=== PATIENT | male | born 1975 | race Caucasian/White ===

== ENCOUNTER 2019-03-09 22:05 | Emergency (ER) | payer OTHER ==
[2019-03-09 22:32] VITALS: BP 120/72; PULSE 64; TEMP 97.7; BMI 29.9
--- NOTE | 2019-03-10 00:05 | PDOC ---
History of Present Illness - General Chief Complaint: Headache Stated Complaint: SENT BY PCP/HEADACHE Time Seen by Provider: 03/10/19 00:02 - History of Present Illness Initial Comments: James Timmons is a 43yo otherwise healthy man who presents with a severe, throbbing , left-sided headache with associated photophobia. He denies any neurological symptoms including changes in vision, change in hearing, focal numbness/weakness , change in speech, sleepiness, or AMS. he additionally denies any nausea or vomiting, though he has not had an appetite today. He took ibuprofen without any significant improvement yesterday but did not take any medication for the headache today. Mr Timmons went to urgent care today and was sent to the ED for additional management due to a family history of aneurysm and stroke. Mr Timmons states that his mother had an aneurysm and multiple strokes as well. Mr Timmons is not sure exactly when or how the headache started, but he thinks it may have been relatively abrupt. He denies any recent URI, fever/chills, cough or other recent symptoms. Past History - Past Medical History Allergies/Adverse Reactions: Allergies Allergy/AdvReac Type Severity Reaction Status Date / Time No Known Allergies Allergy Verified 03/09/19 22:32 COPD: No - Suicide/Smoking/Psychosocial Hx Smoking History: Never smoked Have you smoked in the past 12 months: No Information on smoking cessation initiated: No Hx Alcohol Use: No Drug/Substance Use Hx: No Review of Systems - Review of Systems Comments:: General: No fevers, no chills, no weight or appetite change, no malaise HEENT: No changes in vision, no changes in hearing, no congestion, no sore throat CV: No chest pain, no palpitations, no LE edema Pulm: No SOB, no cough, no wheezing GI: No nausea or vomiting, no change in bowel habits, no melena : No frequency, no urgency, no dysuria Musc: No back pain, no joint swelling, no recent injury Skin: No rash, no lesions, no erythema Endo: No excessive thirst, no heat/cold intolerance Heme: No unusual bruising or bleeding, no swollen glands Neuro: No syncope, no numbness/tingling, no focal weakness Vasc: No claudication Psych: No recent change in mood, no SI or HI *Physical Exam - Vital Signs Last Vital Signs Temp Pulse Resp BP Pulse Ox 97.7 F 64 18 120/72 100 03/09/19 22:30 03/09/19 22:30 03/09/19 22:30 03/09/19 22:30 03/09/19 22:30 - Physical Exam Comments: General: Comfortable, no acute distress HEENT: PERRL, EOMI, MMM, voice normal, normal neck ROM, no LAD Cards: RRR, no murmur appreciated Pulm: Comfortable on room air, clear to auscultation bilaterally Abd: Soft, nontender, nondistended Ext: Atraumatic. No LE edema. ROM intact. Strength 5/5 and equal bilaterally in upper and lower extremities. Vasc: Extremities WWP. Skin: Normal color, no rashes or lesions Neuro: A&Ox3, CN grossly intact, normal speech, motor/sensory grossly intact and symmetric. No ataxia on finger-nose, heel-cabral or rapid alternating movements. Normal gait. Psych: Mood appropriate to situation ED Treatment Course - LABORATORY CBC & Chemistry Diagram: 03/10/19 00:18 03/10/19 00:18 Medical Decision Making - Medical Decision Making 03/10/19 00:04 James Timmons is a 43yo otherwise healthy man who presents with a severe, throbbing , left-sided headache with associated photophobia. He denies any neurological symptoms including changes in vision, change in hearing, focal numbness/weakness , change in speech, sleepiness, or AMS. he additionally denies any nausea or vomiting, though he has not had an appetite today. He took ibuprofen without any significant improvement yesterday but did not take any medication for the headache today. Mr Timmons went to urgent care today and was sent to the ED for additional management due to a family history of aneurysm and stroke. Mr Timmons states that his mother had an aneurysm and multiple strokes as well. Mr Timmons is not sure exactly when or how the headache started, but he thinks it may have been relatively abrupt. He denies any recent URI, fever/chills, cough or other recent symptoms. - Most likely benign headache (tension, migraine) but need to evaluate for aneurysm or bleed given significant family history - CBC, CMP - CT head - IVF, acetaminophen, reglan for symptoms 03/10/19 00:42 - Labs sent - Feeling improved after medications 03/10/19 01:33 - CT reviewed. No abnormalities appreciated, but radiology report pending - Discussed with pt the possibility of a sentinel bleed, recommending an LP to evaluate for a small amout of blood. Discussed that bleeding that occurred over 24 hours ago may not be seen on the CT. Lengthy conversation regarding reasons to complete LP, risks, benefits, possible outcomes including larger bleed in the future that could result in serious adverse outcomes, permanent disability or . Mr Timmons states understanding but states he would prefer to be discharged home. - Dr Bhatia spoke to Mr Timmons. He continues to decline the LP 03/10/19 02:18 - Labs reviewed, no concerning abnormalities - Radiology report also without concerning findings - Mr Timmons will leave AMA. Now feels improved. Understands the risks of forgoing the LP, will return if he has any recurrent or continued symptoms. Will follow up with neuro. Discussed with Dr Bhatia. Sofía Lyles PGY1 *DC/Admit/Observation/Transfer Diagnosis at time of Disposition: Family history of brain aneurysm Headache Qualifiers: Headache type: unspecified Headache chronicity pattern: acute headache Intractability: not intractable Qualified Code(s): R51 - Headache - Discharge Dispostion Disposition: AGAINST MEDICAL ADVICE Condition at time of disposition: Stable Decision to Admit order: No - Referrals Referrals: Zbigniew Zapata MD [Staff Physician] - Aakash Haskins MD [Staff Physician] - - Patient Instructions Printed Discharge Instructions: DI for Headache Additional Instructions: Mr. Timmons Thank you for coming in to the ER today We have performed a CT for you which was read as negative for acute abnormalities The CT scan will be re read in the morning by our Radiologist We will call you if there are any new findings on your CT scan If you have another headache that is severe, please return to the ER immediately - You may use over the counter medications as needed for pain at home. 650- 1000mg acetaminophen (Tylenol) or 600mg ibuprofen (Motrin or Advil) can be used every 6-8 hours. If needed for continued pain, these medications may be alternated every 3-4 hours. For example, if you take ibuprofen at 9am, you may take acetaminophen at noon, ibuprofen at 3pm, etc. - It is strongly recommended that you take ibuprofen with food to help prevent stomach irritation. If you are taking it for more than a day or two, you may consider taking an acid medication such as Pepcid or Xantac, available over the counter, to protect your stomach. This should be taken first thing in the morning 30-60 minutes before any food or medications. You must follow up with a primary care physician AND a neurologist (brain specialist) for further evaluation of your headaches (given your family history) Please feel free to return to the ER for any other concerns or complaints - Post Discharge Activity
[2019-03-10] MEDS ORDERED: METOCLOPRAMIDE HCL INJECTION 10 MG/2 ML VIAL IVPUSH ONE (00:15)
[2019-03-10] MEDS ORDERED: ACETAMINOPHEN 1000 MG/100 ML VIAL (NON FORMULARY) IVPB ONE (00:15)
[2019-03-10] MEDS ORDERED: ACETAMINOPHEN INJECTION 100 ML IVPB ONE (00:24)
[2019-03-10] MEDS ORDERED: METOCLOPRAMIDE HCL INJECTION 10 MG/2 ML VIAL ONE (00:24)
[2019-03-10 01:09] LABS: BASO % 0.3 % (0-2.0); EOS % 1.5 % (0-4.5); HEMATOCRIT 43.9 % (35.4-49); LYMPH % 38.3 % (8-40); MCH 29.7 pg (25.7-33.7); MCHC 34.2 g/dl (32.0-35.9); MEAN PLT VOLUME 7.2 fl (7.5-11.1); MONO % 7.3 % (3.8-10.2); NEUT % 52.6 % (42.8-82.8); PLATELET COUNT 229 K/MM3 (134-434); RBC 5.04 M/mm3 (4.00-5.60); RDW 13.1 % (11.9-15.9); WHITE BLOOD COUNT 5.5 K/mm3 (4.0-10.0)
[2019-03-10 01:51] LABS: ALBUMIN 3.6 g/dl (3.4-5.0); BILIRUBIN,TOTAL 0.2 mg/dL (0.2-1); CALCIUM 8.8 mg/dL (8.5-10.1); CREATININE 0.9 mg/dL (0.55-1.3); POTASSIUM 4.3 mmol/L (3.5-5.1); TOT PROT 6.6 g/dl (6.4-8.2)
--- NOTE | 2019-03-10 01:57 | PDOC ---
Documentation entered by Soco Antony SCRIBE, acting as scribe for Nadja Bhatia MD. Nadja Bhatia MD: This documentation has been prepared by the stacy, Soco Antony SCRIBE, under my direction and personally reviewed by me in its entirety. I confirm that the documentation accurately reflects all work, treatment, procedures, and medical decision making performed by me. Attending Attestation - Resident Resident Name: Sofía Lyles - ED Attending Attestation I have performed the following: I have examined & evaluated the patient, The case was reviewed & discussed with the resident, I agree w/resident's findings & plan, Exceptions are as noted - HPI HPI: 03/10/19 01:31 The patient is a 43 year old male with no significant past medical history who presents to the emergency department with a sudden onset of a headache 1 day ago. The patient reports that he was at home relaxing when he felt his onset of his headache. He describes his headache as a n 8/10 out of the norm feeling that he has never felt before. He states that today, his headache is now a 7/0 in severity. He endorses a family history of Aneurysm and stroke (mother). The patient reports some associated nausea without vomiting, diarrhea, constipation or urinary symptoms. He states that he was able to go to work yesterday. He denies taking any medication to relieve his pain. He denies any vision changes, body ache, neck stiffness, fever, chills, dizziness , numbness, weakness or tingling sensations. The patient denies any other complaints. - Physicial Exam PE: 03/10/19 01:33 GENERAL: The patient is in no acute distress. ENT: Ears normal, nares patent, oropharynx clear without exudates. Moist mucous membranes. NECK: Normal range of motion, supple, no nuchal rigidity LUNGS: Breath sounds equal, clear to auscultation bilaterally. No wheezes, and no crackles. HEART:Regular rate and rhythm, normal S1 and S2 without murmur, rub or gallop. ABDOMEN: Soft, nontender, normoactive bowel sounds. EXTREMITIES: Normal range of motion, no edema. NEUROLOGICAL: Cranial nerves II through XII grossly intact. Normal speech. No focal neurological deficits. SKIN: Warm, Dry, normal turgor, no rashes or lesions noted. - Medical Decision Making 03/10/19 01:34 Mr Timmons is a 43 yo M who presents to the ER with a complaint of headache Pt states his headache began 24 hours ago He reports a rapid onset of symptoms No syncope No vomiting No photophobia No head trauma No nausea or vomiting 03/10/19 01:[address] -nml I have had a long conversation with this patient regarding my concern for Subarachnoid hemorrhage/[place] bleeding Pt states that he will not consent for a Lumbar Puncture I have explained to this patient that we could also possibly perform a CTA of the head and neck, looking for intracranial aneurysms The patient is refusing to stay for CTA as well I have explained to him THE VERY HIGH mortality of SAH, that finding a sentinel bleed could alter his disposition The patient does not want to stay for ANY additional work up In Lieu of staying for further management here/workup, I have asked this patient to follow up with a primary care physician AND a neurologist for further work up (which could include an MRI) Pt also asked to return IMMEDIATELY to ANY ER if he has a recurrent headache, photophobia, phonophobia Pt agrees with this plan *DC/Admit/Observation/Transfer Diagnosis at time of Disposition: Headache Qualifiers: Headache type: unspecified Headache chronicity pattern: acute headache Intractability: not intractable Qualified Code(s): R51 - Headache - Discharge Dispostion Disposition: AGAINST MEDICAL ADVICE Condition at time of disposition: Fair Decision to Admit order: No - Referrals Referrals: Aakash Haskins MD [Staff Physician] - Zbigniew Zapata MD [Staff Physician] - - Patient Instructions Printed Discharge Instructions: DI for Headache Additional Instructions: Mr. Timmons Thank you for coming in to the ER today We have performed a CT for you which was read as negative for acute abnormalities The CT scan will be re read in the morning by our Radiologist We will call you if there are any new findings on your CT scan If you have another headache that is severe, please return to the ER immediately You can take tylenol for a headache You must follow up with a primary care physician AND a neurologist (brain specialist) for further evaluation of your headaches (given your family history) Please feel free to return to the ER for any other concerns or complaints - Post Discharge Activity
== END 2019-03-10 03:02 | disposition left against medical advice (07) ==
LOC: JER 22:05
PROC: 3E033NZ Introduction of Analgesics, Hypnotics, Sedatives into Peripheral Vein, Percutaneous Approach (ICD-10-PCS; principal; 2019-03-09)
PROC: 3E033GC Introduction of Other Therapeutic Substance into Peripheral Vein, Percutaneous Approach (ICD-10-PCS; 2019-03-09)
DX: R51 Headache (principal)
CPT/HCPCS: 36415; 70450-TC; 80053; 85025; 99282-25; J0131